=== PATIENT | female | born 1950 | race Caucasian/White ===

== ENCOUNTER 2021-09-09 07:18 | Emergency (ER) | payer MEDICARE, OTHER ==
[~2021-09-09] VITALS: Ht 180.3 cm; Wt 77.3 kg
--- NOTE | 2021-09-09 08:22 | NUR ---
SB[facility] PT CONDITION TO DR NEWELL AND ASKED IF HE WANT ME TO ORDER ANY X RAY OR ANY LAB ON PT PER MD ONLY ORDER D [email or web address] FOLLOW THE ORDERS.
--- NOTE | 2021-09-09 08:43 | NUR ---
PATIENT HAS BEEN SPENDING MANY HOURS IN THE CAR ON ROAD [address]. STATES PAIN STARTED 8-9 DAYS AGO BUT HAS WORSENED SINCE TRAVELING AND SITTING IN THE CAR.
[2021-09-09 09:11] LABS: D-DIMER 0.32 MG/L FEU (0-0.50)
[2021-09-09] MEDS ORDERED: apixaban 5mg tablet PO STA (09:38)
[2021-09-09] MEDS ORDERED: RIVA20TA PO (10:07)
[2021-09-09] MEDS ORDERED: RIVA15TA PO (10:07)
[2021-09-09 10:22] VITALS: BP 134/73
== END 2021-09-09 10:24 | disposition home or self-care (01) ==
LOC: ER 07:19
DX: I82.401 Acute embolism and thrombosis of unspecified deep veins of right lower extremity (principal); M79.604 Pain in right leg; I10 Essential (primary) hypertension; Z87.440 Personal history of urinary (tract) infections; Z72.89 Other problems related to lifestyle; Z88.8 Allergy status to other drugs, medicaments and biological substances; Z79.899 Other long term (current) drug therapy
CPT/HCPCS: 36415; 85379; 93971; 99284